=== PATIENT | female | born 1975 | race Caucasian/White ===

== ENCOUNTER 2020-10-18 17:05 | Emergency (ER) | payer SELFPAY ==
[~2020-10-18] VITALS: Ht 167.6 cm; Wt 84.4 kg
[2020-10-18 17:24] VITALS: BP 135/52
--- NOTE | 2020-10-18 17:27 | NUR ---
Patient wheelchair assisted to lobby
--- NOTE | 2020-10-18 19:15 | NUR ---
PT CALLED IN LOBBY AND OUTSIDE WITH NO ANSWER.
--- NOTE | 2020-10-18 19:30 | NUR ---
PT CALLED IN LOBBY AND OUTSIDE WITH NO ANSWER.
--- NOTE | 2020-10-18 19:45 | NUR ---
PATIENT LEFT WITHOUT BEING SEEN BY BRENDAN BAUER. NO FURTHER CARE PROVIDED FOR PATIENT.
== END 2020-10-18 19:45 | disposition left against medical advice (07) ==
LOC: MED 17:05
DX: F10.20 Alcohol dependence, uncomplicated (principal); Z53.21 Procedure and treatment not carried out due to patient leaving prior to being seen by health care provider